=== PATIENT | male | born 1945 | race Caucasian/White ===

== ENCOUNTER → 2017-08-19 | Outpatient (CLI) | payer MEDICARE, OTHER ==
[~2017-08-19] MED LIST: ASPIRIN81 M2 PO; COLACE 100 MG100 MG PO; COUMADIN7.5 MG PO; ELIQUIS5 MG PO; ENOXAPARIN80 MG/0.8 SQ; FISH OIL DR 1,1 EAC1 PO; HYDROCODON-ACE1 EAC7 PO; ISOSORBIDE MONO30 M1 PO; LISINOPRIL2.5 MG PO; LOPRESSOR25 PO; METOPROLOL SUCC25 M1 PO; MULTI-VITAMIN1 EAC5 PO; NITROGLYCERIN0.4 MG SUBLING; OXYCODON-ACETA1 EAC1 PO; PACERONE 200 M200 MG PO; PANTOPRAZOLE SO40 MG PO; PLAVIX 75 MG TA75 MG PO; SIMVASTATIN40 MG PO; TOPROL XL25 MG PO; ZPAK PO
== END ==
LOC: M.CT 02-14 08:00
DX: R91.1 Solitary pulmonary nodule (principal)

== ENCOUNTER → 2019-12-24 | Outpatient (CLI) | payer MEDICARE, OTHER ==
--- NOTE | 2019-12-25 11:51 | CARDNUC ---
[place] [address] CARDIAC NUCLEAR IMAGING REPORT Name: GAGAN JONES Room: [facility]#: [id number] Admission: 12/24/19 Attend Phys: Eric Quiroz, Discharge: Date of : 41 Date of Service: 12/25/19 1150 Report #: [id number] THIS REPORT FOR: cc: FAM - No family physician/PCP FAM - No family physician/PCP To Torres MD ~ APPROVED REPORT Imaging Protocol: Rest Tc-99m/Stress Tc-99m 1 day Study performed: 12/24/2019 09:21:00 Indication: pat, Dyspnea Patient Location: Out-Patient Stress Tech: Olivia Zeng Stress Nurse: Vonda Cosby RN Ht: 5 ft 8 in Wt: 209 lbs BSA: 2.08 m2 BMI: 31.77 Medical History Medical History: CAD s/p CABG, CAD s/p MA, HTN, Hyperlipidemia Medications: asa-81, atorvastatin, metoprolol, ntg Allergies: No known drug allergies Cardiac Risk Factors: Age, HTN, Hyperlipidemia, Tobacco History (Former), PVD Previous Cardiac Procedures: CABG Exercise History: Physically active Meds Held (24 hrs): metoprolol Resting Data Rest SPECT myocardial perfusion imaging was performed in supine position 30 minutes following the intravenous injection of 9.0 mCi of Tc-99m Sestamibi. Time of rest injection: 07:55 The images were gated to evaluate regional wall motion and calculate left ventricular ejection fraction. Administration Route: IV Administration Site: Left AC Exercise Stress At peak stress, the patient was injected intravenously with 30.4mCi of Tc-99m Sestamibi. Time of stress injection: 09:50 [place] [address] CARDIAC NUCLEAR IMAGING REPORT Name: ROBERTGAGAN Heber Room: [facility]#: [id number] Admission: 12/24/19 Attend Phys: Eric Quiroz, Discharge: Date of : 41 Date of Service: 12/25/19 1150 Report #: [id number] Administration Route: IV Administration Site: Left AC Heart Rate at time of stress injection: 148 bpm. Patient continued to exercise for 1 minute(s). Gated Stress SPECT was performed 30 minutes after stress injection. The images were gated to evaluate regional wall motion and calculate left ventricular ejection fraction. Prone imaging was performed. Stress Test Details Stress Test: Exercise stress testing was performed using a Noah protocol. HR Max Heart Rate (APMHR): 144 bpm Resting HR: 66 bpm Target HR (85% APMHR): 122 bpm Max HR Achieved: 146 bpm % of APMHR: 101 Recovery HR: 87 bpm BP Resting BP: 125/69 mmHg Max BP: 175/85 mmHg Recovery BP: 142/79 mmHg ECG Resting ECG: Sinus Rhythm Stress ECG: Sinus Rhythm, nonspecific ST-T abnormalities ST Change: Eqivocal Clinical Reason for Termination: Fatigue Exercise duration: 5 min 03 sec Exercise capacity: 7.05 METs Functional Aerobic Impairment 103% Study Quality Study: Good Study Data Post stress, the left ventricular ejection was 59%.. SSS: 11 SRS: 4 SDS: 7 Perfusion Normal perfusion on both the stress [place] [address] CARDIAC NUCLEAR IMAGING REPORT Name: GAGAN JONES Room: [facility]#: [id number] Admission: 12/24/19 Attend Phys: Eric Quiroz, Discharge: Date of : 41 Date of Service: 12/25/19 115 Report #: [id number] Wall Motion Normal left ventricular wall motion. Nuclear Conclusion ECG Findings: equivocal Clinical Findings: non-ischemic Nuclear Findings: negative for ischemia Exercise Capacity: normal Left Ventricular Function: normal Risk Study: low This study is of low probability for inducible ischemia or prior infarct. There is a mild fixed apical defect, probable apical thinning variant. Normal global and segmental LV systolic function. <ELECTRONICALLY SIGNED> By: To Torres MD 12/25/19 1150 115 1150 To Torres MD /INF
== END ==
LOC: M.NUC 12-01 10:31
PROVIDERS: ATTEND Internal Medicine Cardiovascular Disease
DX: I25.10 Atherosclerotic heart disease of native coronary artery without angina pectoris (principal)

== ENCOUNTER → 2021-05-23 | Outpatient (CLI) | payer OTHER | LOC: M.ULTRA 07:22 | PROVIDERS: ATTEND Family Medicine | DX: I65.23 Occlusion and stenosis of bilateral carotid arteries (principal); R09.89 Other specified symptoms and signs involving the circulatory and respiratory systems ==